=== PATIENT | male | born 1955 ===

== ENCOUNTER 2017-04-02 20:31 | Emergency (ER) | payer SELFPAY ==
[2017-04-02 20:31] VITALS: BMI 25.8
[2017-04-02 21:03] VITALS: BP 160/87; PULSE 71; RESP 20; TEMP 97.7; O2SAT 97
[2017-04-02] MEDS ORDERED: Oxymetazoline 0.05% Nasal Spray (30 ml) NS STA (21:08)
[2017-04-02] MEDS ORDERED: Phenylephrine 1% Nasal Spray (15 ml) ONE (21:13)
--- NOTE | 2017-04-02 21:21 | C.PDOC ---
History Of Present Illness 61 year old male with PMH of HTN presents to ER for evaluation of nosebleed from right nostril. He reports he was eating at restaurant went to use restroom and suddenly felt drip from right nostril. He states he tilted head back and tried to shove tissue into nose, then started spitting up blood. He states this happened about 90 minutes ago and every time removed tissue area would bleed. He started feeling nervous and lightheaded after incident prompting ED visit. Denies dizziness prior to epistaxis and has no headache or dizziness currently in the ED. He is compliant with HTN medications and is due for metoprolol dose this evening. Time Seen by Provider: 04/02/17 20:59 Chief Complaint (Nursing): ENT Problem History Per: Patient History/Exam Limitations: None Onset/Duration Of Symptoms: Mins Current Symptoms Are (Timing): Still Present Symptoms Have Been: Continuous Anticoagulant/Antiplatlet Use?: No Recent Aspirin Use: No Past Medical History Reviewed: Historical Data, Nursing Documentation, Vital Signs Vital Signs: Last Vital Signs Temp 97.7 F 04/02/17 20:59 Pulse 71 04/02/17 20:59 Resp 20 04/02/17 20:59 BP 160/87 H 04/02/17 20:59 Pulse Ox 97 04/02/17 21:25 - Medical History PMH: Benign Prostatic Hyperplasia, HTN Surgical History: No Surg Hx - [facility] Procedures DX ULTRASOUND NEC (10/16/14) PERCUTAN NEEDLE BIOPSY OF PROSTATE (10/16/14) Family History: States: Unknown Family Hx - Social History Hx Alcohol Use: No Hx Substance Use: No - Immunization History Hx Tetanus Toxoid Vaccination: Yes Hx Influenza Vaccination: Yes Hx Pneumococcal Vaccination: Yes Review Of Systems Except As Marked, All Systems Reviewed And Found Negative. ENT: Positive for: Other (Nose bleed) Physical Exam - Physical Exam Appears: Non-toxic, No Acute Distress Skin: Warm, Dry Head: Atraumatic, Normacephalic Eye(s): bilateral: Normal Inspection, PERRL, EOMI Nose: Epistaxis (Tissue in right nare removed, and dry blood noted to anterior medial septum, no active bleeding) Oral Mucosa: Moist Throat: Normal, No Erythema Neck: Normal ROM Chest: Symmetrical Cardiovascular: Rhythm Regular Respiratory: Normal Breath Sounds, No Wheezing Extremity: Bilateral: Atraumatic, Normal ROM ED Course And Treatment O2 Sat by Pulse Oximetry: 97 Medical Decision Making Medical Decision Making: Patient with nosebleed, which has self resolved upon arrival to ED. Dry blood in right nare. Patient in no distress. Afrin spray to nostril. Patient stable for discharge. Patient instructed on nosebleed care and condition is self limited, no further care indicated. Disposition Counseled Patient/Family Regarding: Diagnosis, Need For Followup - Disposition Disposition: HOME/ ROUTINE Disposition Time: 21:18 Condition: STABLE Additional Instructions: Con el autocuidado correcto, la mayora de las hemorragias nasales se detendr n. [place] es lo que debe hacer si obtiene haley: Sintese o prese mientras se inclina ligeramente hacia adelante en la cintura. No se acueste ni incline la mitesh hacia atrs. [place] puede hacer que trague alisa y puede provocar vmitos. Agarre la parte suave de AMBAS fosas nasales en la parte inferior de kessler nariz Aprieta la nariz cerrada por al menos 10 a 15 minutos y usa un reloj para sincronizarte. No libere la presin de vez en cuando para verificar si el sangrado se conner detenido. Muchas personas perjudican delilah posibilidades de detener el sangrado al liberar la presin demasiado pronto. With the right self-care, most nosebleeds will stop. Here's what you should do if you get one: Sit or stand while bending forward slightly at the waist. Do not lie down or tilt your head back. This may cause you to swallow blood and can lead to vomiting. Cargo Supervisor the soft part of BOTH nostrils at the bottom of your nose Squeeze your nose closed for at least 10 to 15 minutes and use a clock to time yourself. Do not release the pressure every so often to check whether the bleeding has stopped. Many people hurt their chances of stopping the bleeding by releasing the pressure too soon. Instructions: Nosebleed (ED) Forms: [employer] (Ukrainian) Print Language: SAMMARINESE - POA Present On Arrival: None - Clinical Impression Clinical Impression: Right-sided nosebleed
== END 2017-04-02 21:26 | disposition home or self-care (01) ==
LOC: C.ER 20:31
DX: R04.0 Epistaxis (principal)